=== PATIENT | male | born 1960 | race Hispanic/Latino ===

== ENCOUNTER 2020-09-16 13:34 | Emergency (ER) | payer OTHER ==
[2020-09-16 14:12] VITALS: BP 143/84
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
== END 2020-09-16 17:39 | disposition home or self-care (01) ==
LOC: ED 13:34
DX: S32.020A Wedge compression fracture of second lumbar vertebra, initial encounter for closed fracture (principal); S89.91XA Unspecified injury of right lower leg, initial encounter; S69.92XA Unspecified injury of left wrist, hand and finger(s), initial encounter; I10 Essential (primary) hypertension; E11.9 Type 2 diabetes mellitus without complications; Z98.890 Other specified postprocedural states; Z79.899 Other long term (current) drug therapy; Z79.84 Long term (current) use of oral hypoglycemic drugs; Z91.011 Allergy to milk products; V49.49XA Driver injured in collision with other motor vehicles in traffic accident, initial encounter; Y93.89 Activity, other specified; Y92.410 Unspecified street and highway as the place of occurrence of the external cause; Y99.8 Other external cause status
CPT/HCPCS: 72100